=== PATIENT | female | born 1970 | race Caucasian/White ===

== ENCOUNTER 2025-03-15 10:36 | Emergency (ER) | payer MEDICAID, OTHER ==
[~2025-03-15] VITALS: Ht 154.9 cm; Wt 67.1 kg
[2025-03-15 10:46] VITALS: TEMP 97.8
[2025-03-15] MEDS ORDERED: PRED50TA PO (11:03)
[2025-03-15] MEDS ORDERED: FAMOTIDINE (20 MG) 20 MG TABLET ONE (11:04)
[2025-03-15] MEDS: FAMOTIDINE (20 MG) 20 MG TABLET PO ONE (11:19)
[2025-03-15 11:24] VITALS: BP 117/69
[2025-03-15 11:33] VITALS: O2SAT 98
== END 2025-03-15 11:33 | disposition home or self-care (01) ==
LOC: ER 11:20
DX: T78.40XA Allergy, unspecified, initial encounter (principal); M19.90 Unspecified osteoarthritis, unspecified site; X58.XXXA Exposure to other specified factors, initial encounter
CPT/HCPCS: 99284; Q0163; J7512